=== PATIENT | male | born 1960 | race Caucasian/White ===

== ENCOUNTER 2017-01-31 15:55 | Emergency (ER) | payer OTHER ==
[~2017-01-31] VITALS: Ht 175.3 cm; Wt 113.4 kg
--- NOTE | 2017-01-31 16:33 | PHYS DOC ---
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 There was no ejection however after he fell the patient bounced around inside the case hitting his head in the roof of the cage. No loss of consciousness. The patient is not on blood thinners. Patient denies any focal weakness or numbness or vision problems. Review of Systems Review of Systems Constitutional: No recent illnesses Eyes: Denies change in visual acuity, HENT: Denies facial injury or oral injury Respiratory: Denies shortness of breath [] Cardiovascular: No chest pain GI: Denies abdominal pain, or hematuria [] Musculoskeletal: Denies extremity pain, has mild low back pain. [] Integument: Observation at the top head Neurologic: Mild headache, denies focal weakness or sensory changes [] ALL other systems reviewed and found to be negative unless stated otherwise Allergies Allergies Allergies Coded Allergies Type Severity Reaction Last Updated Verified No Known Drug Allergies 01/31/17 No Physical Exam Physical Exam Constitutional: Well developed, well nourished, no acute distress, non-toxic appearance. [] HENT: Normocephalic, atraumatic with the exception being small hematoma top of the head with a small abrasion there is no laceration. No signs of basilar skull fracture. Eyes: EOMI, conjunctiva normal, no discharge. [] Neck: In c-collar, diffuse tenderness in the neck, no step-offs Cardiovascular:Heart rate regular rhythm, no murmur, normal perfusion Lungs & Thorax: Bilateral breath sounds clear to auscultation [] Abdomen: Bowel sounds normal, soft, no tendern Skin: Warm, dry, no erythema, no rash. Small abrasion on the top of the head Back: No tenderness, no midline tenderness or step-offs Extremities: No tenderness, no cyanosis, no clubbing, ROM intact, no edema. No deformity. Able to ambulate in the ED Neurologic: Alert and oriented X 3, normal motor function, , no focal deficits noted. [] Psychologic: Affect normal, judgement normal, mood normal. [] Current Patient Data Vital Signs Vital Signs Date Time Temp Pulse Resp B/P (MAP) Pulse Ox O2 Delivery O2 Flow Rate FiO2 01/31/17 16:02 98.5 90 18 158/92 (114) 97 Room Air 98.5 EKG EKG [] Radiology/Procedures Radiology/Procedures [] Course & Med Decision Making Course & Med Decision Making Pertinent Labs and Imaging studies reviewed. (See chart for details) The ventricles are within normal limits in size. There is no shift of the midline structures. There is no evidence of acute intracranial hemorrhage or mass effect. There is moderate mucosal thickening in the left maxillary sinus, likely on an inflammatory basis. IMPRESSION: No acute intracranial abnormality is detected. CT of the cervical spine without contrast, 01/31/2017: Noncontrast scans were obtained with multiplanar reconstructions produced. There are mild scattered marginal spurs. No acute fracture or dislocation is identified. There is mild spurring involving scattered facet joints. There are mild scattered posterior disc bulges. The lower cervical discs are not adequately visualized due to artifact. The combination of findings is causing mild central spinal stenosis particularly at C5-6 and C6-7. IMPRESSION: 1. Moderate multilevel degenerative change as described above. 2. No acute bony abnormality is detected. 1823 patient has been reassessed and found to be in no distress, results have been discussed with the patient. I removed the c-collar patient has full range of motion with any weakness or numbness or paresthesias. Patient was able to sit up and ambulate in the room without difficulty. Strict return precautions have been discussed with the patient who understands and agrees to follow-up as directed [] Dragon Disclaimer Dragon Disclaimer This electronic medical record was generated, in whole or in part, using a voice recognition dictation system. Departure Departure Impression: Primary Impression: Head injury due to trauma Additional Impressions: Injury of neck Abrasion Disposition: 01 HOME, SELF-CARE Condition: STABLE Patient Instructions: Abrasion, [id number], Head Injury, Adult, Soft Tissue Injury of the Neck, [id number] Additional Instructions: please follow up with your doctor for recheck and re-evaluation in 3-5 days. If you do not have a doctor please follow up at one of the clinics in the list we provided to you. Scripts Naproxen (NAPROXEN) 375 Mg Tablet 1 TAB PO BID, #20 TAB 0 Refills Prov: Ki OCHOA MD 01/31/17 Hydrocodone/Apap 5-325 (NORCO 5-325 TABLET) 1 Each Tablet 1 TAB PO Q4-6HRS, #15 TAB Prov: Ki OCHOA MD 01/31/17 Problem Qualifiers Ki OCHOA MD Jan 31, 2017 16:33
--- NOTE | 2017-01-31 17:30 | RAD ---
CT of the head without contrast, 01/31/2017: HISTORY: Fall, injury The ventricles are within normal limits in size. There is no shift of the midline structures. There is no evidence of acute intracranial hemorrhage or mass effect. There is moderate mucosal thickening in the left maxillary sinus, likely on an inflammatory basis. IMPRESSION: No acute intracranial abnormality is detected. CT of the cervical spine without contrast, 01/31/2017: Noncontrast scans were obtained with multiplanar reconstructions produced. There are mild scattered marginal spurs. No acute fracture or dislocation is identified. There is mild spurring involving scattered facet joints. There are mild scattered posterior disc bulges. The lower cervical discs are not adequately visualized due to artifact. The combination of findings is causing mild central spinal stenosis particularly at C5-6 and C6-7. IMPRESSION: 1. Moderate multilevel degenerative change as described above. 2. No acute bony abnormality is detected. Electronically signed by: Missael Pinto MD (01/31/2017 5:27 PM) [id number]
[2017-01-31 18:06] VITALS: BP 145/82
[2017-01-31] MEDS ORDERED: HYDR-971 PO (18:27)
[2017-01-31] MEDS ORDERED: NAPR375T3 PO (18:27)
== END 2017-01-31 18:41 | disposition home or self-care (01) ==
LOC: ER 15:55
DX: S00.83XA Contusion of other part of head, initial encounter (principal); S19.9XXA Unspecified injury of neck, initial encounter; E11.9 Type 2 diabetes mellitus without complications; I10 Essential (primary) hypertension; W19.XXXA Unspecified fall, initial encounter; Y93.89 Activity, other specified; Y92.89 Other specified places as the place of occurrence of the external cause; Y99.8 Other external cause status
CPT/HCPCS: 70450; 72125; 99284-25